=== PATIENT | female | born 1955 | race Caucasian/White ===

== ENCOUNTER 2018-01-18 10:28 | Day surgery (SDC) | payer OTHER ==
[~2018-01-18] VITALS: Ht 162.6 cm; Wt 72.6 kg
[2018-01-18] MEDS ORDERED: DIPHENHYDRAMINE INJ 50 MG/ML VIAL ONE (11:02)
[2018-01-18] MEDS ORDERED: MIDAZOLAM HCL 2 MG/2 ML VIAL (VERSED) ONE (11:02)
[2018-01-18] MEDS ORDERED: IOHEXOL 50 ML IV ONE (12:04)
[2018-01-18 13:52] VITALS: BP_SYST 141
[2018-01-18] MEDS ORDERED: DIPHENHYDRAMINE INJ 50 MG/ML VIAL IVP ONE (16:00)
[2018-01-18] MEDS ORDERED: MIDAZOLAM HCL 2 MG/2 ML VIAL (VERSED) IVP ONE (16:00)
== END 2018-01-18 14:55 | disposition home or self-care (01) ==
LOC: SDS 10:28
PROVIDERS: ATTEND Internal Medicine
DX: M51.16 Intervertebral disc disorders with radiculopathy, lumbar region (principal); Z90.710 Acquired absence of both cervix and uterus; Z79.899 Other long term (current) drug therapy; I10 Essential (primary) hypertension; G20 Parkinson's disease; M79.1 Myalgia; M50.90 Cervical disc disorder, unspecified, unspecified cervical region
CPT/HCPCS: 62323; 76000; J3465; J7120; Q9967; J1200

== ENCOUNTER 2018-08-09 12:13 | Day surgery (SDC) | payer OTHER ==
[~2018-08-09] VITALS: Ht 162.6 cm; Wt 72.6 kg
[2018-08-09] MEDS ORDERED: DEXAMETHASONE SOD PHOSPHATE 4 MG/ML VIAL IVP ONE (12:14)
[2018-08-09] MEDS ORDERED: BUPIVACAINE /PF 0.25% 30 ML VIAL INJ ONE (12:14)
[2018-08-09] MEDS ORDERED: LIDOCAINE 2%, 20 ML MDV INJ ONE (12:14)
[2018-08-09] MEDS ORDERED: IOHEXOL 300 mgI/mL, 50 mL INFUS..BTL IV ONE (12:14)
[2018-08-09] MEDS ORDERED: DIPHENHYDRAMINE INJ 50 MG/ML VIAL IVP ONE (14:43)
[2018-08-09] MEDS ORDERED: MIDAZOLAM HCL 5 MG/5 ML VIAL IVP ONE (14:45)
[2018-08-09] MEDS ORDERED: MIDAZOLAM HCL 5 MG/5 ML VIAL ONE (16:49)
[2018-08-09 17:19] VITALS: BP_SYST 139
[2018-08-09] MEDS ORDERED: DIPHENHYDRAMINE INJ 50 MG/ML VIAL ONE (18:32)
== END 2018-08-09 16:10 | disposition home or self-care (01) ==
LOC: SDS 12:13
PROVIDERS: ATTEND Internal Medicine
DX: M51.16 Intervertebral disc disorders with radiculopathy, lumbar region (principal); M50.90 Cervical disc disorder, unspecified, unspecified cervical region; M79.10 Myalgia, unspecified site; I10 Essential (primary) hypertension; Z79.899 Other long term (current) drug therapy
CPT/HCPCS: 62323; J1100; J1200; J2001; J2250; J3490; J7120; Q9967